=== PATIENT | female | born 1950 | race Caucasian/White ===

== ENCOUNTER 2020-05-05 16:58 | Inpatient (IN) | payer MEDICARE, OTHER, SELFPAY ==
[2020-05-05] VITALS (8 sets, daily range): BP systolic 114–196; BP diastolic 56–89; PULSE 76–88; RESP 16–18; TEMP 36.4–36.7; O2SAT 96–98; BMI 21.1
--- NOTE | 2020-05-05 17:16 | XR_ITS ---
PROCEDURE: XR HIP LT 2-3V W/PELVIS CLINICAL INDICATION: fall Posttraumatic pain COMPARISON: No exams were available for comparison FINDINGS: There is a comminuted intertrochanteric fracture of the left hip which is not significantly displaced. There are mild osteoarthritic changes involving both hips. There may also be a component involving the basicervical portion of the left femoral neck. CT may confirm if clinically desired. IMPRESSION: Comminuted nondisplaced left intertrochanteric hip fracture with basicervical component superiorly along the femoral neck Dictated by: Morro Caceres MD 05/05/2020 18:37 Morro Caceres MD in [place] 05/05/2020 18:37
[2020-05-05 17:33] LABS: Chloride 102 mmol/L (98-107)
[2020-05-05 17:34] LABS: Potassium 4.4 mmoL/L (3.5-5.1); Sodium 134 mmol/L (136-145)
--- NOTE | 2020-05-05 17:35 | HMH.EDGENADL ---
ED Disposition Clinical Impression: Femoral neck fracture Qualifiers: Encounter type: initial encounter Fracture type: closed Laterality: left Qualified Code(s): S72.002A - Fracture of unspecified part of neck of left femur, initial encounter for closed fracture Disposition: Admitted As Inpatient Condition on Discharge: Good - Critical Care Critical Care Time: No Attestation: On 05/05/20, the high probability of a clinically significant, sudden or life threatening deterioration of the following system(s) required my full and direct attention, intervention and personal management. The time I documented below is in addition to time spent performing reported procedures but includes the following listed in this critical care notation. Medical Decision Making - Medical Records Medical records reviewed: Yes: I reviewed the patient's medical records. - [facility] Inquiry Pt receiving controlled substance: No Vital Signs: 05/05/20 16:58 05/05/20 17:28 05/05/20 19:21 Temperature 98 F Temperature Source Oral Pulse Rate [Radial] 79 78 88 Respiratory Rate 16 Blood Pressure [Right Arm] 196/89 H 176/86 H 114/58 L Blood Pressure Mean [Right Arm] 124 116 76 Blood Pressure Position [Right Arm] Sitting Sitting 02 Sat by Pulse Oximetry 98 98 Oxygen Delivery Method Room Air Room Air - Lab Data Lab Results 05/05/20 17:20: WBC 7.2, RBC 3.99 L, Hgb 13.4, Hct 41.4, MCV 103.8 H, MCH 33.6 H, MCHC 32.4, RDW 13.8, Plt Count 156, MPV 8.3, Neut % (Auto) 64.5, Lymph % (Auto) 28.0, [place] % (Auto) 3.7, Eos % (Auto) 3.1, Baso % (Auto) 0.8, Neut # (Auto) 4.6, Lymph # (Auto) 2.0, [place] # (Auto) 0.3, Eos # (Auto) 0.2, Baso # (Auto) 0.1 05/05/20 17:20: Sodium 134 L, Potassium 4.4, Chloride 102, Carbon Dioxide 27, Anion Gap 9.4, BUN 29 H, Creatinine 1.40 H, Estimated Creat Clear 35, Estimated GFR 37 L, Est GFR ( Amer) 45 L, Glucose 124 H, Calcium 9.0, Total Bilirubin 0.5, AST 38 H, ALT 22, Alkaline Phosphatase 121, Total Protein 7.1, Albumin 4.3, Globulin 2.8, Albumin/Globulin Ratio 1.5 05/05/20 17:20: SARS-CoV-2 IgG Ab (Rapid) Negative, SARS-CoV-2 IgM Ab (Rapid) Negative Result diagrams: 05/05/20 17:20 05/05/20 17:20 Orders (Tests/Meds): ED MEDICATIONS Generic Name Dose Route Start Last Admin Trade Name Freq PRN Reason Stop Dose Admin Hydrocodone Bitart/Acetaminophen 1 tab 05/05/20 20:06 Hydrocodone/Apap 5/325 Mg Tablet PO 06/04/20 20:05 Q4HP PRN Mild to Moderate Pain Docusate Sodium 100 mg 05/06/20 09:00 Docusate Sodium 100 Mg Capsule PO 06/05/20 08:59 DAILY SEAN Lactated Ringer's 1,000 mls @ 50 mls/hr 05/05/20 20:06 Lactated Ringer's 1000 Ml Bag IV 06/04/20 20:05 .Q20H SEAN Pantoprazole Sodium 40 mg 05/06/20 09:00 Pantoprazole 40mg Tablet PO 06/05/20 08:59 DAILY SEAN Discontinued Medications Generic Name Dose Route Start Last Admin Trade Name Freq PRN Reason Stop Dose Admin Acetaminophen 1,000 mg 05/05/20 20:23 05/05/20 20:31 Acetaminophen 500mg Tab PO 05/05/20 20:24 1,000 mg ONCE ONE Administration ORDERS Category Date Time Status CT pelvis wo con Stat Cat Scan 05/05/20 18:40 Taken Medical Decision Narrative: 69-year-old female brought in by EMS for evaluation after a fall from standing. Hemodynamically stable and nontoxic in appearance upon arrival. GCS 15. No evidence of head trauma. Isolated injury to left hip. Differential diagnosis includes was not limited to left hip fracture, pelvic fracture, left hip dislocation, soft tissue contusion, femur fracture. Obtained x-rays which were concerning for left femoral neck fracture. Discussed patient's case with orthopedics who recommended obtaining CT of pelvis, which was obtained and showed evidence of impacted fracture of the left femoral neck. Provided patient with oral Tylenol for pain, as patient declined any IV pain medications narcotics. Discussed the options of admission for further
[2020-05-05 17:36] LABS: Alanine Aminotransferase 22 U/L (12-78); Albumin Level 4.3 g/dl (3.5-5.0); Alkaline Phosphatase 121 U/L (38-126); Aspartate Amino Transferase 38 U/L (14-36); Bilirubin,Total 0.5 mg/dl (0.2-1.3); Blood Urea Nitrogen 29 mg/dl (7-17); Creatinine Clearance Estimated 35 mL/min (50-200); Estimated Glomerular Filt Rate 37 ml/min (>60); GFR (African American) 45 ML/MIN (>60)
[2020-05-05 17:37] LABS: Albumin/Globulin Ratio 1.5 (1.1-1.8); Anion Gap 9.4 mEq/L (5-15); Carbon Dioxide 27 mmol/L (22.0-30.0); Globulin 2.8 g/dL (1.3-3.2); Glucose 124 mg/dl (74-100); Total Protein,Serum 7.1 g/dl (6.3-8.2)
--- NOTE | 2020-05-05 17:37 | XR_ITS ---
PROCEDURE: XR CHEST AP CLINICAL HISTORY: fall Posttraumatic pain COMPARISON: No exams were available for comparison FINDINGS: The cardiomediastinal silhouette and pulmonary vascularity are within normal limits. No lobar consolidation or collapse is evident. There is some nodularity along the lower lung field on the left in the retrocardiac region in 2 different areas at 10 mm and 13 mm. The remaining lungs are clear. No acute bony abnormalities. IMPRESSION: No acute finding. Two nodular densities overlying the left lower lobe. Nonemergent CT may provide further evaluation. Dictated by: Morro Caceres MD 05/05/2020 18:36 Morro Caceres MD in [place] 05/05/2020 18:36
[2020-05-05 17:54] LABS: Basophils # 0.1 K/mm3 (0-0.2); Basophils % 0.8 % (0.1-2.0); Eosinophils # 0.2 K/mm3 (0.0-0.4); Eosinophils % 3.1 % (0.1-12.0); Hematocrit 41.4 % (37.0-47.0); Hemoglobin 13.4 g/dL (12.2-16.2); Mean Corpuscular HGB Conc 32.4 g/dL (31.8-35.4); Mean Corpuscular Hemoglobin 33.6 pg (27.0-31.2); Mean Corpuscular Volume 103.8 fl (81-99); Mean Platelet Volume 8.3 fl (7.4-10.4); Monocytes # 0.3 K/mm3 (0.1-1.0); Monocytes % 3.7 % (1.7-9.3); Neutrophils # 4.6 K/mm3 (1.8-7.8); Neutrophils % 64.5 % (37.0-80.0); Platelet Count 156 K/mm3 (142-424); Red Blood Count 3.99 M/mm3 (4.20-5.40); Red Cell Distribution Width 13.8 % (11.5-17.5); White Blood Count 7.2 K/mm3 (4.8-10.8)
[2020-05-05 18:02] LABS: Coronavirus 19 IgG Antibody Negative (Negative); Coronavirus 19 IgM Antibody Negative (Negative)
--- NOTE | 2020-05-05 18:40 | CT_ITS ---
PROCEDURE: CT PELVIS WO CON CLINICAL INDICATION: left hip fracture Left hip injury with pain, possible fracture. Further evaluation required COMPARISON: CR XR HIP LT 2-3V W/PELVIS from 05/05/2020 TECHNIQUE: Axial images obtained with sagittal and coronal reformats. All CT scans at the facility use one or more dose reduction, viz: automated exposure control, ma/kV adjustment per patient size (including targeted exams where dose is matched to indication, i.e. head), or iterative reconstruction technique. FINDINGS: There is a complex comminuted fracture involving the left femoral neck. Anteriorly the fracture begins in the subcapital region and extends obliquely and posteriorly to the inter trochanteric region. There is impaction of the fracture fragments. There is mild varus angulation of the distal fracture fragment. The base of the lesser trochanter is fractured with minimal medial displacement. The femoral head is located. There is diffuse osteopenia with mild osteoarthritic changes of the hips. There is diffuse vascular calcification IMPRESSION: Comminuted and impacted fracture of the left hip extending from the subcapital region superiorly to the intertrochanteric region inferiorly as described above. Dictated by: Morro Caceres MD 05/06/2020 06:10 Morro Caceres MD in [place] 05/06/2020 06:10
--- NOTE | 2020-05-05 18:43 | PC.NURSE ---
Dr Shaw spoke with Dr Nguyễn
--- NOTE | 2020-05-05 19:35 | PC.NURSE ---
admitted to 279
--- NOTE | 2020-05-05 20:06 | PC.NURSE ---
doris dao at [facility] for possible transfer
--- NOTE | 2020-05-05 20:10 | PC.NURSE ---
pt refused norco, requesting tylenol
--- NOTE | 2020-05-05 20:41 | PC.NURSE ---
called [facility]. no beds available
--- NOTE | 2020-05-05 22:00 | PC.NURSE ---
PT ALERT AND ORIENTED X 4,LUNGS CLEAR TO ASCULTATE,RESP.EVEN AND UNLABORED.B/P 147/87,P-84,R-18,T-97.6,SAT.LEVEL 98% ON RA.LEFT LEG SWOLLEN FROM HIP TO KNEE.LITTLE EXTERNAL ROTATION OF FOOT,WEAK PEDAL PULSES NOTED BILATERALLY.LEFT FOOT AND LEG COOL TO TOUCH.PT HAS NOT TAKEN ANYTHING EXCEPT TYLENOL IN ER,REFUSED ANYTHING STRONGER IN ER AND HERE ON UNIT.VERY LIMITED MOBILITY OF LEFT LEG,UNDERWOOD CATH WAS ANCHORED DUE TO THIS.
--- NOTE | 2020-05-05 23:10 | HMH.HP ---
*Admission Date: 05/05/20 *Chief complaint: Left hip injury *History of present illness: This 69-year-old white female was walking her dog on a leash when the dog tried to karen a cat, pulling the patient down with injury to her left hip. She had pain and was not able to stand. She was brought to [facility] where x-ray revealed an impacted left femoral fracture. Dr. Nguyễn has been contacted and surgery is planned for tomorrow. The patient is generally quite healthy. She takes lisinopril for hypertension. She has a strong family history of diabetes. Allergies to codeine and oxycodone, penicillin and tetracycline are noted. [facility] History I have reviewed the patient's past medical history: Yes Medical History: Reports:: Hypertension (Lisinopril she says 30 mg.) *Have you ever received a pneumonia vaccine?: Yes *Have you received a flu vaccine this season?: Yes Other Medical History: Denies: Thyroid Disease Other Surgeries: Yes: No Previous Surgery - *Social History Smoking Status: Never smoker Alcohol Intake: never Substance Use Type: denies use *Occupational Status:: other *Travel in the last 8 weeks: None Family Hx:: Diabetes (Multiple family members), Hypertension Review of Systems - Constitutional Denies anorexia, Denies body ache(s), Denies chills - Eyes Denies change in vision - ENT Denies dizziness, Denies difficulty swallowing, Denies nasal congestion - *Cardiovascular Denies chest pain, Denies fast heart rate - *Gastrointestinal Denies abdominal pain, Denies constipation - *Genitourinary Denies painful urination - *Musculoskeletal Denies joint pain, Denies back pain - *Neurologic Denies unsteadiness, Denies dizziness, Denies headache(s), Denies lack of coordination - Hematologic/Lymphatic Denies easy bleeding, Denies easy bruising Meds Home Medications Medication Instructions Recorded Confirmed Type lisinopriL [Lisinopril 30mg Tablet] 30 mg PO DAILY 05/05/20 05/05/20 History Allergies Allergy/AdvReac Type Severity Reaction Status Date / Time Penicillins [PENICILLINS] Allergy Unknown Verified 05/05/20 20:25 codeine Allergy Verified 05/05/20 22:01 oxycodone Allergy Verified 05/05/20 22:01 Tetracyclines Allergy Verified 05/05/20 20:25 Exam Vital signs and Labs for Last 24 Hours: Temp Pulse Resp BP Pulse Ox 98.1 F 78 17 121/56 L 98 05/05/20 21:24 05/05/20 21:24 05/05/20 21:24 05/05/20 21:24 05/05/20 21:00 Laboratory Results - last 24 hr 05/05/20 17:20: WBC 7.2, RBC 3.99 L, Hgb 13.4, Hct 41.4, MCV 103.8 H, MCH 33.6 H, MCHC 32.4, RDW 13.8, Plt Count 156, MPV 8.3, Neut % (Auto) 64.5, Lymph % (Auto) 28.0, [place] % (Auto) 3.7, Eos % (Auto) 3.1, Baso % (Auto) 0.8, Neut # (Auto) 4.6, Lymph # (Auto) 2.0, [place] # (Auto) 0.3, Eos # (Auto) 0.2, Baso # (Auto) 0.1 05/05/20 17:20: Sodium 134 L, Potassium 4.4, Chloride 102, Carbon Dioxide 27, Anion Gap 9.4, BUN 29 H, Creatinine 1.40 H, Estimated Creat Clear 35, Estimated GFR 37 L, Est GFR ( Amer) 45 L, Glucose 124 H, Calcium 9.0, Total Bilirubin 0.5, AST 38 H, ALT 22, Alkaline Phosphatase 121, Total Protein 7.1, Albumin 4.3, Globulin 2.8, Albumin/Globulin Ratio 1.5 05/05/20 17:20: SARS-CoV-2 IgG Ab (Rapid) Negative, SARS-CoV-2 IgM Ab (Rapid) Negative I & O for Last 24 hours: Intake & Output 05/03/20 05/04/20 05/05/20 05/06/20 11:59 11:59 11:59 11:59 Weight 131 lb - Constitutional mild distress (Due to left hip pain) - *Routine HEENT Exam Head: Present: normocephalic Eye: Present: PERRL ENT: Present: mucous membranes moist. Absent: dentition normal (Edentulous with dentures) - *Routine Neck Exam Present: supple. Absent: JVD, thyromegaly - Routine Chest/Breast/Axilla Exam Chest wall: Absent: tenderness - *Routine Respiratory Exam Present: CTA bilaterally - *Routine Cardiovascular Exam Present: RRR, S4 - *Routine Abdominal Exam Present: soft. Absent: tenderness, mass - *
[2020-05-06] VITALS (16 sets, daily range): BP systolic 95–148; BP diastolic 53–76; PULSE 71–89; RESP 16–20; TEMP 36.2–43; O2SAT 94–99
--- NOTE | 2020-05-06 05:50 | PC.NURSE ---
pt has rested off and on throughout the night,refused anything but tylenol for pain,lungs clear throughtout.resp.even and unlabored.zavaleta cath patent and draining yellow urine.pedal pulses present more so today,swelling noted from hip to knee on right side.
[2020-05-06 06:50] LABS: Monocytes # 0.3 K/mm3 (0.1-1.0)
[2020-05-06 06:56] LABS: Chloride 105 mmol/L (98-107)
[2020-05-06 06:57] LABS: Potassium 4.3 mmoL/L (3.5-5.1); Sodium 134 mmol/L (136-145)
[2020-05-06 06:59] LABS: Blood Urea Nitrogen 30 mg/dl (7-17); Creatinine Clearance Estimated 41 mL/min (50-200); Estimated Glomerular Filt Rate 44 ml/min (>60); GFR (African American) 54 ML/MIN (>60)
[2020-05-06 07:00] LABS: Anion Gap 8.3 mEq/L (5-15); Basophils % 0.5 % (0.1-2.0); Calcium 8.5 mg/dl (8.4-10.2); Carbon Dioxide 25 mmol/L (22.0-30.0); Eosinophils % 0.3 % (0.1-12.0); Glucose 122 mg/dl (74-100); Hematocrit 35.7 % (37.0-47.0); Lymphocytes # 0.9 K/mm3 (0.7-4.5); Lymphocytes % 13.7 % (10-50); Mean Corpuscular HGB Conc 33.6 g/dL (31.8-35.4); Mean Corpuscular Hemoglobin 33.6 pg (27.0-31.2); Mean Corpuscular Volume 100.3 fl (81-99); Mean Platelet Volume 8.8 fl (7.4-10.4); Monocytes % 4.6 % (1.7-9.3); Neutrophils # 5.3 K/mm3 (1.8-7.8); Neutrophils % 80.9 % (37.0-80.0); Platelet Count 115 K/mm3 (142-424); Red Blood Count 3.56 M/mm3 (4.20-5.40); Red Cell Distribution Width 13.7 % (11.5-17.5); White Blood Count 6.5 K/mm3 (4.8-10.8)
[2020-05-06 07:19] LABS: Prothrombin Time 10.5 seconds (9.4-11.8)
[2020-05-06 07:20] LABS: INR 0.94 (0.9-1.1)
--- NOTE | 2020-05-06 07:24 | HMH.PHAVTE ---
[facility] Pharmacy VTE Monitoring - Patient Demographics Admission date: 05/05/20 Report Date: 05/06/20 Time: 07:24 Allergies/Adverse Reactions: Patient Allergies Penicillins [PENICILLINS] Allergy (Unknown, Verified 05/05/20 20:25) codeine Allergy (Verified 05/05/20 22:01) oxycodone Allergy (Verified 05/05/20 22:01) Sulfa (Sulfonamide Antibiotics) Allergy (Verified 05/06/20 02:43) Tetracyclines Allergy (Verified 05/05/20 20:25) Height: 1.68 m Weight: 59.421 kg Patient Problems: Current Active Problems Femoral neck fracture (Acute) Hypertension (Acute) - VTE Risk Labs: VTE Related Lab Results Hgb 13.4 g/dL (12.2-16.2) 05/05/20 17:20 Hct 35.7 % (37.0-47.0) L 05/06/20 06:22 Plt Count 115 K/mm3 (142-424) L D 05/06/20 06:22 PT 10.5 seconds (9.4-11.8) 05/06/20 06:22 INR 0.94 (0.9-1.1) 05/06/20 06:22 BUN 30 mg/dl (7-17) H 05/06/20 06:22 Creatinine 1.20 mg/dl (0.52-1.04) H 05/06/20 06:22 Estimated Creat Clear 41 mL/min (50-200) 05/06/20 06:22 Was VTE Risk Assessment Performed: Yes VTE Score: 2 VTE Risk Level: Very Low Risk Clinical Trial Participant: No - Prophylaxis VTE Prophylaxis Ordered?: Yes Types of VTE Prophylaxis: TEDS Knee High Location of Applied Device: Bilateral Lower Extremeties
--- NOTE | 2020-05-06 07:27 | HMH.PHAINT ---
Medication reconciliation completed using pharmacy claims data.
--- NOTE | 2020-05-06 09:05 | HMH.ACPN2 ---
Internal Medicine - PN: Subj *Date: 05/06/20 *Time: 09:05 Interval history: Patient is having a lot of pain in the left hip. She is only taking tylenol for pain and refuses any other pain medication. She denies any other pain. Exam Vital signs and Labs for Last 24 Hours: Temp Pulse Resp BP Pulse Ox 97.8 F 75 18 127/65 98 05/06/20 05:00 05/06/20 05:00 05/06/20 05:00 05/06/20 05:00 05/06/20 05:00 Laboratory Results - last 24 hr 05/05/20 17:20: WBC 7.2, RBC 3.99 L, Hgb 13.4, Hct 41.4, MCV 103.8 H, MCH 33.6 H, MCHC 32.4, RDW 13.8, Plt Count 156, MPV 8.3, Neut % (Auto) 64.5, Lymph % (Auto) 28.0, [place] % (Auto) 3.7, Eos % (Auto) 3.1, Baso % (Auto) 0.8, Neut # (Auto) 4.6, Lymph # (Auto) 2.0, [place] # (Auto) 0.3, Eos # (Auto) 0.2, Baso # (Auto) 0.1 05/05/20 17:20: Sodium 134 L, Potassium 4.4, Chloride 102, Carbon Dioxide 27, Anion Gap 9.4, BUN 29 H, Creatinine 1.40 H, Estimated Creat Clear 35, Estimated GFR 37 L, Est GFR ( Amer) 45 L, Glucose 124 H, Calcium 9.0, Total Bilirubin 0.5, AST 38 H, ALT 22, Alkaline Phosphatase 121, Total Protein 7.1, Albumin 4.3, Globulin 2.8, Albumin/Globulin Ratio 1.5 05/05/20 17:20: SARS-CoV-2 IgG Ab (Rapid) Negative, SARS-CoV-2 IgM Ab (Rapid) Negative 05/06/20 06:22: WBC 6.5, RBC 3.56 L, Hgb 12.0 L D, Hct 35.7 L, MCV 100.3 H, MCH 33.6 H, MCHC 33.6, RDW 13.7, Plt Count 115 L D, MPV 8.8, Neut % (Auto) 80.9 H, Lymph % (Auto) 13.7, [place] % (Auto) 4.6, Eos % (Auto) 0.3, Baso % (Auto) 0.5, Neut # (Auto) 5.3, Lymph # (Auto) 0.9, [place] # (Auto) 0.3, Eos # (Auto) 0.0, Baso # (Auto) 0.0 05/06/20 06:22: PT 10.5, INR 0.94 05/06/20 06:22: Sodium 134 L, Potassium 4.3, Chloride 105, Carbon Dioxide 25, Anion Gap 8.3, BUN 30 H, Creatinine 1.20 H, Estimated Creat Clear 41, Estimated GFR 44 L, Est GFR ( Amer) 54 L, Glucose 122 H, Calcium 8.5 I & O for Last 24 hours: Intake & Output 05/03/20 05/04/20 05/05/20 05/06/20 11:59 11:59 11:59 11:59 Intake Total 398 / 398 Output Total 600 / 600 Balance - / -202 Weight 131 lb - Constitutional no acute distress - *Routine Respiratory Exam Present: CTA bilaterally - *Routine Cardiovascular Exam Present: RRR - *Routine Abdominal Exam Present: soft, normoactive bowel sounds. Absent: tenderness - *Routine Extremities Exam Absent: cyanosis, clubbing, edema Comments: tender along the lateral aspect of the left hip, unable to move left leg - *Routine Skin Exam Present: warm. Absent: rash - *Routine Neurological Exam Present: alert, oriented X3 Assessment and Plan (1) Hypertension Status: Acute Category: Medical Code(s): I10 - Essential (primary) hypertension (2) Femoral neck fracture Status: Acute Qualifiers: Encounter type: initial encounter Fracture type: closed Laterality: left Qualified Code(s): S72.002A - Fracture of unspecified part of neck of left femur, initial encounter for closed fracture Category: Medical Code(s): S72.009A - Fracture of unspecified part of neck of unspecified femur, initial encounter for closed fracture - Assessment and plan all Dx Assessment and Plan for all problems:: Ortho to see patient today for surgery.
--- NOTE | 2020-05-06 12:26 | HMH.ORTHOCON ---
*Admission Date: 05/05/20 *Reason for consult:: Complex intertrochanteric fracture, left femur *History of present illness: Patient is a 69-year-old female admitted to inpatient medical services yesterday evening for management of left hip fracture. Patient's daughter is by the bedside at the time of consultation. She presented to the emergency department yesterday following a mechanical fall. Patient states she was walking her dog when he tried to karen a cat, and pulled her down onto her left hip. Patient states she was unable to get up or walk after the fall due to pain in her left hip. Patient denies any dizziness, headache, chest or neck pain. She denies loss of consciousness, chest pain and shortness of breath. She lives by herself and is mobile and independent. She does not use any walking aids. She reports no problems with her hips prior to the fall. She had surgery for left ankle fracture about 7 or 8 years ago in [place]. She says her pain is well controlled at rest but trying to move the left leg causes severe hip/thigh pain. No history of any distal tingling or numbness. She denies any other injuries. Her past medical history is significant for hypertension. The patient is generally quite healthy and active. She takes lisinopril for hypertension. She has a strong family history of diabetes. Allergies to codeine, oxycodone, penicillin, cephalosporins and tetracycline are noted. [facility] History I have reviewed the patient's past medical history: Yes Medical History: Reports:: Hypertension (Lisinopril she says 30 mg.) *Have you ever received a pneumonia vaccine?: Yes *Have you received a flu vaccine this season?: Yes Other Medical History: Denies: Thyroid Disease Other Surgeries: Yes: No Previous Surgery - *Social History Smoking Status: Never smoker Alcohol Intake: never Substance Use Type: denies use *Occupational Status:: other *Travel in the last 8 weeks: None Family Hx:: Diabetes (Multiple family members), Hypertension Review of Systems - Review of Systems Review of systems:: pertinent systems reviewed and negative unless documented below - Constitutional Denies body ache(s), Denies chills, Denies fever(s) - Eyes Denies change in vision - ENT Denies abnormal hearing - *Cardiovascular Denies chest pain, Denies shortness of breath - *Respiratory Denies chest congestion, Denies cough, Denies shortness of breath - *Gastrointestinal Denies abdominal pain, Denies change in bowel habits - *Genitourinary Denies painful urination - *Musculoskeletal Denies joint pain, Denies limited joint movement - Integumentary/Breasts Denies changing lesions - *Neurologic Denies unsteadiness, Denies dizziness, Denies headache(s), Denies lack of coordination - Endocrine Denies cold intolerance, Denies heat intolerance - Hematologic/Lymphatic Denies easy bleeding, Denies easy bruising Meds Home Medications Medication Instructions Recorded Confirmed Type lisinopriL [Lisinopril 30mg Tablet] 30 mg PO DAILY 05/05/20 05/05/20 History Allergies Allergy/AdvReac Type Severity Reaction Status Date / Time Penicillins [PENICILLINS] Allergy Unknown Verified 05/05/20 20:25 cephalexin [From Keflex] Allergy Verified 05/06/20 12:18 codeine Allergy Verified 05/05/20 22:01 oxycodone Allergy Verified 05/05/20 22:01 Sulfa (Sulfonamide Allergy Verified 05/06/20 02:43 Antibiotics) Tetracyclines Allergy Verified 05/05/20 20:25 Exam Vital signs and Labs for Last 24 Hours: Temp Pulse Resp BP Pulse Ox 97.6 F 79 16 128/63 94 L 05/06/20 09:00 05/06/20 09:00 05/06/20 09:00 05/06/20 09:00 05/06/20 09:00 Laboratory Results - last 24 hr 05/05/20 17:20: WBC 7.2, RBC 3.99 L, Hgb 13.4, Hct 41.4, MCV 103.8 H, MCH 33.6 H, MCHC 32.4, RDW 13.8, Plt Count 156, MPV 8.3, Neut % (Auto) 64.5, Lymph % (Auto) 28.0, [place] % (Auto) 3.7, Eos % (Auto) 3.1, Baso % (Auto) 0.8, Neut # (Auto) 4.6, Lymph # (Auto) 2
--- NOTE | 2020-05-06 14:37 | SW/DCPLANNER ---
Addendum entered by Kassandra Whitten 05/10/20 12:54: This patient has been set up with [facility] for PT/OT. These services will take place at her daughters her in [place]. Original Note: I have spoke with this patient regarding discharge plans once medically stable for discharge. Patient stated that she resides at home alone and does well at home by herself. Patient stated that her daughter lives in [place] and is currently staying in town for her surgery. I did discuss discharge plans with this patient: return home with family/friend support and home health vs placement. I informed patient that after surgery she will receive services from PT and they will recommend appropriate discharge plan. Patient stated that her and her daughter have been discussing the idea of this patient going back to [place] with daughter. I will follow up with patient tomorrow morning. I have also gave this patient a list of facilities here in [place].
--- NOTE | 2020-05-06 15:20 | PC.NURSE ---
Consent for surgery signed by pt and witnessed by this nurse.
--- NOTE | 2020-05-06 15:30 | PC.NURSE ---
Reassessment completed No acute changes from previous assessment. Lungs remain CTA, Heart at RR. BS present x4. Pt. rates pain at 3/10 Nurse offered additional pain medication, Pt. refused. Pt. denies further needs, will continue to monitor.
--- NOTE | 2020-05-06 16:21 | PC.NURSE ---
Pt. to Pre-op via pt. bed, Report, antibiotic and chart given to Surgical nurses at this time
--- NOTE | 2020-05-06 16:30 | PC.NURSE ---
Per Pt. request Nurse notified Clarita Webbjeovany (daughter) of Pt. going down for surgery.
--- NOTE | 2020-05-06 17:54 | XR_ITS ---
PROCEDURE: XR HIP LT 2-3V W/PELVIS CLINICAL INDICATION: ORIF GAMMA NAIL LEFT HIP USING C-ARM GUIDANCE. COMPARISON: No exams were available for comparison FINDINGS: Fluoroscopy time: 3 minutes and 41 seconds. Multiple images are submitted during gamma nail and intramedullary ju insertion. A screw also placed superior to the gamma nail. Good alignment noted. IMPRESSION: Status post ORIF with C-arm guidance as described above. Dictated by: Morro Caceres MD 05/07/2020 07:19 Morro Caceres MD in [place] 05/07/2020 07:19
--- NOTE | 2020-05-06 19:18 | PC.NURSE ---
Report given to Jose Worley RN.
--- NOTE | 2020-05-06 19:33 | HMH.ANESCL ---
[facility] Anesthesia Checklist - Patient Identification Patient Identification: Arm Band - Structural Data Admitted From: Inpatient Planned Operative Procedure/s: Left Hip Cephalomedullary Nailing Consent for Planned Operative Procedure(s) Verified: Yes Verified Documents: Surgical Consent, History and Physical - NPO Status Verified Time NPO: 00:00 - Additional verifications Anesthesia Reactions: No - Airway Assessment C-Spine Mobility Assessed: Yes TMJ Mobility Assessed: Yes - Anesthesia Plan Anesthesia Risk discussed: Yes Anesthesia Plan: Verified ASA Class: II Anesthesia Type: General [facility] History I have reviewed the patient's past medical history: Yes Medical History: Reports:: Hypertension (Lisinopril she says 30 mg.) *Have you ever received a pneumonia vaccine?: Yes *Have you received a flu vaccine this season?: Yes Other Medical History: Denies: Thyroid Disease Anesthesia experience/problems:: nac Other Surgeries: Yes: No Previous Surgery - *Social History Smoking Status: Never smoker Alcohol Intake: never Substance Use Type: denies use *Occupational Status:: other *Travel in the last 8 weeks: None Family Hx:: Diabetes (Multiple family members), Hypertension
--- NOTE | 2020-05-06 21:08 | HMH.ANESI ---
[facility] Anesthesia Record Part I Intake, IV Amount: 1,700 Estimated blood loss (mL): 200 Urine output (mL): 150 Blood Pressure: 95/69 SaO2: 94 Pulse Rate: 81 Respiratory Rate: 16 Temperature: 97.2 F Patient is:: Drowsy, Stable Stable to PACU at:: 21:00
--- NOTE | 2020-05-06 21:41 | HMH.OPNOTE ---
Date of procedure: 05/06/20 Pre-op Diagnosis:: Closed, complex, comminuted and displaced intertrochanteric fracture, left femur Post-op Diagnosis:: Same Procedure performed:: 1. Close reduction under anesthesia, left proximal femur fracture 2. Cephalomedullary nailing, left femur Surgeon:: Richard Nguyễn MD Arborist Representative(s):: Karen Hernandez [employer] SUPERVISOR:: Ean Pelayo Anesthesia: GETA Estimated blood loss (mL): 200 Clinical Note:: Patient is a 69-year-old female who had a mechanical fall sustaining an injury to her left hip on 05/05/2020. Following evaluation in the emergency room where imaging showed a complex displaced and comminuted proximal femur fracture on the right side; patient was admitted for further management. After evaluating the patient, I have discussed the diagnosis and management options in detail including nonsurgical and surgical, with the patient and her daughter. Prior to the injury patient was active and mobile independently. She lives by herself. After a detailed discussion with the patient and her daughter a decision was made to fix the fracture internally with a cephalo-medullary nail. I have discussed the procedure, risks and benefits, postoperative recovery and rehabilitation and the expected outcomes. The complications discussed include but are not limited to DVT, PE, infection, bleeding, injury to nerves and blood vessels, screw cut-out/implant failure, loss of fixation, nonunion, malunion/malrotation, osteonecrosis of the femoral head, femoral shaft fracture, painful hardware, heterotopic ossification, stiffness, weakness, incomplete relief of pain, incomplete return of function or motion and the likely need for further surgery in future, and anesthetic/medical complications including heart attack, stroke, transfusion reaction or . The patient wished to proceed with the surgical remediation. Consent form was reviewed and signed by me. The limb was appropriately marked and initialed by me. Following appropriate preoperative workup and medical clearance, patient is brought to the operating room for surgery. The surgery is indicated to reduce and stabilize the fracture, relieve pain and improve function. Patient understood the risks, agreed to proceed with surgery, signed the consent form and no guarantees or assurances were given or implied. Operative findings:: Complex, comminuted, displaced and unstable fracture of the RIGHT proximal femur as noted on the preoperative imaging. The fracture is well reduced with closed manipulation prior to fixation. Bone quality is osteopenic. Operative note:: Following appropriate preoperative workup and medical clearance, patient is brought to the operating room and a general anesthesia was administered by the nutritionist. Patient was then positioned supine on the fracture table and all the bony prominences were appropriately padded. The left foot was secured in the footplate and the footplate was attached to the fracture table. The right leg was placed out of the way in a leg olivares. Under fluoroscopic guidance the fracture was reduced by traction and satisfactory reduction was obtained. The reduction was confirmed on both AP and lateral views. The left hip and thigh were then prepped and draped in the usual sterile fashion. Administration of prophylactic antibiotics was confirmed with the nutritionist (900 mg of IV clindamycin was administered). A preprocedure timeout was performed as per the hospital protocol. After marking the level of the greater trochanter on the skin under fluoroscopy, a skin incision was made proximal to the greater trochanter in line with the femoral shaft. The dissection was then carried through the subcutaneous tissue. The tensor fascia muscle was split in line with the fibers. This provided access to the tip of the greater trochanter. Under fluoroscopic guidance a guidewire was placed at the tip of the greater trochanter, the position was confirmed on both fluoroscopic views
--- NOTE | 2020-05-06 21:45 | PC.NURSE ---
2126-detailed report called to CHRIS Luis 2131-pt transported to OB room 279 as overflow from med/surg per CHRIS Malik and RENU Francis and left in care of CHRIS Luis with bed locked in lowest position, vss, family at bedside, pt stable
--- NOTE | 2020-05-06 22:30 | PC.NURSE ---
ICE WATER,APPLE JUICE PROVIDED,PT DENIES ANY NEED FOR PAIN MEDICINE AT THIS TIME.
--- NOTE | 2020-05-06 22:44 | PC.NURSE ---
CUP OF BLACK COFFEE PROVIDED TO PT AT THIS TIME
--- NOTE | 2020-05-06 22:50 | PC.NURSE ---
RESPIRTORY HERE AND INSTRUCTED PT IN INCENTIVE SPIROMETER,PT WAS ABLE TO ACHIEVE 750ML
--- NOTE | 2020-05-06 23:00 | PC.NURSE ---
COFFEE PROVIDED.PT REFUSING ANYTHING FOR PAIN,REPORTS SHE DOES NOT HAVE ANY,JUST A TWITCH EVERY NOW AND THEN
[2020-05-07] VITALS (13 sets, daily range): BP systolic 110–149; BP diastolic 45–76; PULSE 65–95; RESP 16–18; TEMP 36.3–37.5; O2SAT 94–100
--- NOTE | 2020-05-07 03:30 | PC.NURSE ---
PT ALERT AND ORIENTED X 4,LUNGS CLEAR,RESP.EVEN AND UNLABORED.SAT LEVEL WITH 2 LITER OXYGEN IS 100%,TURNING OXYGEN OFF AND RECHECKING HER SAT LEVEL WITHOUT OXYGEN IN ABOUT 30 MINS.PT AFIBRILE,UNDERWOOD CATH EMPTIED 200ML OD DARK URINE.GAVE PT A PARTIAL BED BATH AND WASHED HER HIBICLENS OFF,CATH CARE DONE TOO.PT HAS DENIED ANY PAIN THROUGHTOUT THE NIGHT,SAID AT TIMES JUST FEELS A TWINCH,DRESSING DRY ON THE LEFT LEG,WEAK PEDAL PULSES NOTED,ICPS ON RIGHT LEG,ICE PACK ON THE LEFT LEG
--- NOTE | 2020-05-07 04:00 | PC.NURSE ---
WATER PITCHER FILLED WITH ICE AND PT PROVIDED WITH SOME COFFEE,NO NEEDS OR CONCERN VOICED
[2020-05-07 07:30] LABS: Basophils % 0.2 % (0.1-2.0); Eosinophils % 0.1 % (0.1-12.0); Hematocrit 29.6 % (37.0-47.0); Hemoglobin 9.5 g/dL (12.2-16.2); Lymphocytes # 0.7 K/mm3 (0.7-4.5); Lymphocytes % 8.5 % (10-50); Mean Corpuscular HGB Conc 32.1 g/dL (31.8-35.4); Mean Corpuscular Hemoglobin 33.2 pg (27.0-31.2); Mean Corpuscular Volume 103.3 fl (81-99); Mean Platelet Volume 10.8 fl (7.4-10.4); Monocytes # 0.3 K/mm3 (0.1-1.0); Monocytes % 3.2 % (1.7-9.3); Neutrophils # 7.1 K/mm3 (1.8-7.8); Platelet Count 100 K/mm3 (142-424); Red Blood Count 2.87 M/mm3 (4.20-5.40); Red Cell Distribution Width 13.2 % (11.5-17.5)
[2020-05-07 07:40] LABS: Chloride 103 mmol/L (98-107)
[2020-05-07 07:41] LABS: Potassium 4.8 mmoL/L (3.5-5.1); Sodium 132 mmol/L (136-145)
[2020-05-07 07:43] LABS: Alanine Aminotransferase 23 U/L (12-78); Alkaline Phosphatase 60 U/L (38-126); Anion Gap 8.8 mEq/L (5-15); Aspartate Amino Transferase 34 U/L (14-36); Bilirubin,Total 0.8 mg/dl (0.2-1.3); Blood Urea Nitrogen 31 mg/dl (7-17); Carbon Dioxide 25 mmol/L (22.0-30.0); Creatinine Clearance Estimated 41 mL/min (50-200); Estimated Glomerular Filt Rate 44 ml/min (>60); GFR (African American) 54 ML/MIN (>60)
[2020-05-07 07:44] LABS: Albumin Level 2.9 g/dl (3.5-5.0); Albumin/Globulin Ratio 1.2 (1.1-1.8); Calcium 7.7 mg/dl (8.4-10.2); Globulin 2.5 g/dL (1.3-3.2); Glucose 185 mg/dl (74-100); Total Protein,Serum 5.4 g/dl (6.3-8.2)
[2020-05-07 07:47] LABS: MANUAL DIFFERENTIAL MANUAL DIFFERENTIAL (MANUAL DIFF)
[2020-05-07 09:46] LABS: Lymphocytes % 6 % (10-50); Macrocytosis 1+; Monocytes % 4 % (2-9); Neutrophils % 90 % (42-76); Platelet Estimate Slight Decrease; Total Cells Counted 100
--- NOTE | 2020-05-07 09:59 | HMH.ANESII ---
[facility] Anesthesia Record Part II Discharge Time: 21:30 Destination: Obstetric PACU nurse assessment reviewed?: Yes Patient Condition:: Good Anesthesia Complications:: None Swallowing reflex intact?: Yes Cyanosis?: No Blood Pressure: 148/76 Pulse Rate: 78 Temperature: 97.7 F Mental Status: Alert & Oriented Pain level:: 0 Nausea and/or vomitting:: None Intake, IV Amount: 0
--- NOTE | 2020-05-07 11:06 | HMH.ACPN2 ---
Internal Medicine - PN: Subj *Date: 05/07/20 *Time: 11:06 Interval history: The patient is feeling well. She is sitting up in bed watching TV and seems to have no discomfort. She asks about her blood pressure medication which she has not taken since she has been hospitalized. She takes 30 mg of lisinopril daily. She is complementary of the care that she has been receiving. Exam Vital signs and Labs for Last 24 Hours: Temp Pulse Resp BP Pulse Ox 97.7 F 78 16 148/76 H 94 L 05/07/20 10:00 05/07/20 10:00 05/07/20 08:00 05/07/20 10:00 05/07/20 08:00 Laboratory Results - last 24 hr 05/06/20 12:39: Blood Type O Positive, Antibody Screen Negative 05/07/20 06:58: WBC 8.0, RBC 2.87 L, Hgb 9.5 L, Hct 29.6 L, MCV 103.3 H, MCH 33.2 H, MCHC 32.1, RDW 13.2, Plt Count 100 L, MPV 10.8 H, Neut % (Auto) 88.0 H, Lymph % (Auto) 8.5 L, [place] % (Auto) 3.2, Eos % (Auto) 0.1, Baso % (Auto) 0.2, Neut # (Auto) 7.1, Lymph # (Auto) 0.7, [place] # (Auto) 0.3, Eos # (Auto) 0.0, Baso # (Auto) 0.0, Total Counted 100, Neutrophils % (Manual) 90 H, Lymphocytes % (Manual) 6 L, Monocytes % (Manual) 4, Platelet Estimate Slight decrease, Macrocytosis 1+ 05/07/20 06:58: Sodium 132 L, Potassium 4.8, Chloride 103, Carbon Dioxide 25, Anion Gap 8.8, BUN 31 H, Creatinine 1.20 H, Estimated Creat Clear 41, Estimated GFR 44 L, Est GFR ( Amer) 54 L, Glucose 185 H, Calcium 7.7 L, Total Bilirubin 0.8, AST 34, ALT 23, Alkaline Phosphatase 60, Total Protein 5.4 L, Albumin 2.9 L, Globulin 2.5, Albumin/Globulin Ratio 1.2 Note H&H I & O for Last 24 hours: Intake & Output 05/04/20 05/05/20 05/06/20 05/07/20 11:59 11:59 11:59 11:59 Intake Total 398 / 398 1700 / 1700 Output Total 600 / 600 1150 / 1150 Balance -202 / -202 550 / 550 Weight 131 lb - Constitutional no acute distress - *Routine HEENT Exam Eye: Present: PERRL ENT: Present: mucous membranes moist - *Routine Respiratory Exam Present: CTA bilaterally - *Routine Cardiovascular Exam Present: RRR - *Routine Abdominal Exam Absent: tenderness - *Routine Extremities Exam Absent: edema (Dressing is in place on the left hip area. Flowtron is in place on the right leg) Assessment and Plan (1) Femoral neck fracture Status: Acute Qualifiers: Encounter type: initial encounter Fracture type: closed Laterality: left Qualified Code(s): S72.002A - Fracture of unspecified part of neck of left femur, initial encounter for closed fracture Category: Medical Code(s): S72.009A - Fracture of unspecified part of neck of unspecified femur, initial encounter for closed fracture (2) Hypertension Status: Acute Category: Medical Code(s): I10 - Essential (primary) hypertension - Assessment and plan all Dx Assessment and Plan for all problems:: Lisinopril 30 mg daily is now ordered.
--- NOTE | 2020-05-07 11:16 | HMH.OTEV ---
OT Inpatient Evaluation Rehab OT IP Evaluation Start: 05/06/20 21:35 Freq: ONCE Status: Complete Protocol: Document 05/07/20 11:10 NATALIIA (Rec: 05/07/20 11:16 [email or web address] [id number]) Rehab OT IP Assessment Subjective History 69 year old female fell while walking the dog on 05/05/20 resulted in left hip pain and unable to ambulate. Patient brought to [facility] ED per ambulance with x-ray revealed impacted L femoral fx. PMH: HTN and L femoral neck fracture. Patient underwent close reduction under anesthesia and cephalomedually nailing on 05/06/20. Patient lives alone and independent with ADLs and fx'l mobility. Subjective I haven't taken any pain medication. I just rather only take them when needed. Educated Patient to take pain medication prior to therapy to improve participation. Teach back successful. Objective Patient Orientation Person,Place,Time,Name,Age, Birthday,Day of Month,Day of Week,Month,Year,Situation Upper Extremity Gross ROM WNL Bed Mobility bed mobility-scooting,bed mobility - supine/sit,bed mobility - rolling Assist Level Moderate x 1 (50% assist) Feeding Ability Independent Rehab OT IP prob,goals,plan Problems Date of Evaluation: 05/07/20 OT IP Problems Bed Mobility,Transfers,Balance ,Self care,Safety Rehab Potential Rehab Potential Good Equipment Needs Assistive Devices Standard Walker Plan OT intervention Plan Bed Mobility,Transfers,Balance ,Self care,Safety,Therapeutic Exercise OT Plan Frequency Daily Duration LOS Discharge Goals Bed Mobility Ability Standby Assistance Discharge Plan OT Discharge Plan TBD at this time. Patient prefers to return home with possible HH. Patient has not consulted with CM during evaluation. Patient would benefit
--- NOTE | 2020-05-07 11:50 | HMH.PTEV ---
Physical Therapy Evaluation Rehab PT IP Evaluation Start: 05/06/20 21:35 Freq: ONCE Status: Active Protocol: Document 05/07/20 11:47 PHORNE (Rec: 05/07/20 11:49 PHORNE [id number]) Subjective/History History History [address] [facility] after fall while walking her dog with L hip fx. Now S/P L femur IMN. She reports being independent with all activity TUBE WINDER. Subjective Subjective Pt reports feeling much better than yesterday prior to surgery. Rehab PT IP Eval Objective Appearance Patient Behavior Appropriate Patient Orientation Person,Place,Time Difficulty following instructions none Speech Pattern Clear Ambulation Patient Able to Ambulate Yes Ambulation Observation IP General Gait Pattern Observation Antalgic Gait,Decrease Stride Lngth (R),Decrease Stride Lngth (L) Ambulation Distance (feet) 10 Ambulation Assistive Device Rolling Walker Ambulation Ability Contact Guard/Hand Hold Balance Ability to Arise Able, uses arms to help Sitting Balance Steady, safe Standing Balance Steady, wide stance Dynamic Sitting Balance Ability Good Dynamic Standing Balance Ability Good Transfers Bed Transfer Ability Minimal x 1 (25% assist) Chair Transfer Ability Contact Guard/Hand Hold Sit to Stand Bed Transfer Ability Contact Guard/Hand Hold Sit to Stand Chair Transfer Ability Contact Guard/Hand Hold ROM All Extremities PT ROM Status WFL MMT All Extremities PT MMT WFL Abnormal MMT Grade L LE grossly 2+/5 Rehab PT IP prob,goals,plan Problems Date of Evaluation: 05/07/20 PT IP Problems Bed Mobility,Transfers Rehab Potential Rehab Potential Good Equipment Needs Assistive Devices Rolling / Wheeled Walker Plan PT Intervention Plan Bed Mobility,Transfers,Gait, Therapeutic Exercise PT Plan Frequency BID Duration LOS Discharge Goals Bed Transfer Ability Contact Guard/Hand Hold Sit to Stand Chair Transfer Ability Supervision/Stand by Ambulation Assistive Device Rolling Walker Ambulation Distance (feet) 30 Discharge Plan PT Discharge Plan Pt is appropriate to return home with daughter for assistance. Recommend HHPT upon d/c. G -code Required No Eval Complexity Eval
--- NOTE | 2020-05-07 12:01 | PC.NURSE ---
Patient will need a rolling walker rather than a cane due to hip fracture. Patient will need a bedside commode due to hip fracture and distance to the restroom in the home.
--- NOTE | 2020-05-07 13:15 | PC.NURSE ---
Dr. Nguyễn in room at this time. Verbal order received to D/C IVF. order read back and verified.
--- NOTE | 2020-05-07 15:44 | HMH.ORTHPN ---
Subjective Date: 05/07/20 Time: 15:15 Principal diagnosis: Fracture neck of femur, left Interval history: Patient is a 69-year-old female, status post cephalo-medullary nailing LEFT femur, post op day #1. She is sitting out in a chair and appears comfortable; says she is doing well and is eating and drinking well. She says her pain is well controlled with Tylenol. No history of any fevers, chills or rigors. No history of any nausea, vomiting, chest pain or SOB. She is very appreciative of the care she is receiving during this admission. Objective: PN: Obj Ex Vital signs: Temp Pulse Resp BP Pulse Ox 98.3 F 83 16 110/51 L 96 05/07/20 12:00 05/07/20 12:00 05/07/20 12:00 05/07/20 12:00 05/07/20 12:00 Narrative: Laboratory Results - last 24 hr 05/07/20 06:58: WBC 8.0, RBC 2.87 L, Hgb 9.5 L, Hct 29.6 L, MCV 103.3 H, MCH 33.2 H, MCHC 32.1, RDW 13.2, Plt Count 100 L, MPV 10.8 H, Neut % (Auto) 88.0 H, Lymph % (Auto) 8.5 L, [place] % (Auto) 3.2, Eos % (Auto) 0.1, Baso % (Auto) 0.2, Neut # (Auto) 7.1, Lymph # (Auto) 0.7, [place] # (Auto) 0.3, Eos # (Auto) 0.0, Baso # (Auto) 0.0, Total Counted 100, Neutrophils % (Manual) 90 H, Lymphocytes % (Manual) 6 L, Monocytes % (Manual) 4, Platelet Estimate Slight decrease, Macrocytosis 1+ 05/07/20 06:58: Sodium 132 L, Potassium 4.8, Chloride 103, Carbon Dioxide 25, Anion Gap 8.8, BUN 31 H, Creatinine 1.20 H, Estimated Creat Clear 41, Estimated GFR 44 L, Est GFR ( Amer) 54 L, Glucose 185 H, Calcium 7.7 L, Total Bilirubin 0.8, AST 34, ALT 23, Alkaline Phosphatase 60, Total Protein 5.4 L, Albumin 2.9 L, Globulin 2.5, Albumin/Globulin Ratio 1.2 Objective: Vitals,I&O,and Labs: I reviewed her vital signs, lab results, medication, nursing notes, medical progress notes and also discussed with the nursing staff regarding her progress. Exam: General appearance: Alert, awake, no acute distress ENT: Mucous membranes moist Eyes: normal exam ENT: normal exam Neck: normal inspection Cardiovascular: regular rate & rhythm Respiratory: no respiratory distress; speaks in full sentences ABD: soft and nontender. Skin: no gross abnormalities Neuro: alert, awake oriented x 3 Psych: Appropriate mood and affect On examination of the LEFT lower extremity, the limb lengths are equal. The alignment is neutral. The dressings over the hip/thigh are clean, dry and intact. Attempted movements of the hip are painful. Distal neurovascular status is intact. Distal pulses are 1+. Distal sensation is intact to light touch throughout. No motor deficits noted distally. Calf is soft and nontender. No clinical signs of DVT noted. Copies of the fluoroscopic images given to the patient. - Urinary Catheter Management Swanson Cath placed during this visit: no Progress Note: A&P (1) Femoral neck fracture Status: Acute (2) Hypertension Status: Acute Assessment and Plan for All Diagnoses:: I have reviewed the clinical and operative findings and procedure performed progress with the patient. Patient is doing well and advised her to continue mobilization weight bearing as tolerated with physical therapy. Discontinue IV fluids as patient is eating and drinking well. Swanson's catheter DC'd earlier today. Continue PT/OT, pain management with as needed analgesics. Care management looking into discharge planning. Patient wants to go to her daughter's home for few weeks with home health. From an orthopedic standpoint, patient can be discharged tomorrow if medically appropriate. Recommend DVT prophylaxis for 6 weeks postop-agent of choice as per admitting physician. Follow-up in my office in 2 weeks? time with check x-ray. Please feel free to call our office at [phone] for any orthopaedic questions. Continue medical management as per Dr. Taylor.
--- NOTE | 2020-05-07 16:30 | PC.NURSE ---
Routine reassessment completed. No acute changes from previous assessment. Lungs CTA, Heart at RR. BS present x4. Leg hip with foam tape dressing in place x2. both C/D/I. Pt. denies pain. Non pitting edema noted to left hip. Pt. able to move left foot and toes, pedal pulses present and WNL. Pt. denies needs, will continue to monitor.
--- NOTE | 2020-05-07 19:38 | PC.NURSE ---
Report given to Iraida Lyon RN.
--- NOTE | 2020-05-07 21:30 | PC.NURSE ---
20g iv to lfa removed, pt tolerated well
[2020-05-08 05:00] VITALS: BP 118/55; PULSE 86; RESP 18; TEMP 37.2; O2SAT 94
--- NOTE | 2020-05-08 05:54 | PC.NURSE ---
pt has rested well throughout night, pt is alert and oriented, lungs clear to auscultate, heart rate regular, bs x4, pt is passing flatus, pt ambulated from bed to bathroom with standby assist only, pt states hip is sore but refuses tylenol. drsg clean dry and intact to left hip, positive pedal pulses, no needs at this time
[2020-05-08 06:53] LABS: Basophils % 0.4 % (0.1-2.0); Eosinophils % 0.5 % (0.1-12.0); Hematocrit 27.6 % (37.0-47.0); Hemoglobin 9.4 g/dL (12.2-16.2); Lymphocytes # 1.1 K/mm3 (0.7-4.5); Lymphocytes % 16.9 % (10-50); Mean Corpuscular HGB Conc 33.9 g/dL (31.8-35.4); Mean Corpuscular Hemoglobin 33.8 pg (27.0-31.2); Mean Corpuscular Volume 99.5 fl (81-99); Mean Platelet Volume 9.9 fl (7.4-10.4); Monocytes # 0.3 K/mm3 (0.1-1.0); Neutrophils # 5.1 K/mm3 (1.8-7.8); Neutrophils % 78.2 % (37.0-80.0); Platelet Count 102 K/mm3 (142-424); Red Blood Count 2.78 M/mm3 (4.20-5.40); Red Cell Distribution Width 13.5 % (11.5-17.5); White Blood Count 6.6 K/mm3 (4.8-10.8)
[2020-05-08 07:02] LABS: Chloride 99 mmol/L (98-107); Potassium 4.5 mmoL/L (3.5-5.1); Sodium 130 mmol/L (136-145)
[2020-05-08 07:05] LABS: Anion Gap 8.5 mEq/L (5-15); Blood Urea Nitrogen 29 mg/dl (7-17); Carbon Dioxide 27 mmol/L (22.0-30.0); Creatinine Clearance Estimated 35 mL/min (50-200); Estimated Glomerular Filt Rate 37 ml/min (>60); GFR (African American) 45 ML/MIN (>60); Glucose 116 mg/dl (74-100)
--- NOTE | 2020-05-08 07:09 | PC.NURSE ---
pt gave self bed bath and gown was changed.
--- NOTE | 2020-05-08 07:10 | PC.NURSE ---
report given to Lala Torre RN
[2020-05-08 07:39] VITALS: BP 114/53; PULSE 92; RESP 20; TEMP 36.7; O2SAT 89
[2020-05-08 08:00] VITALS: O2SAT 94
[2020-05-08 09:35] LABS: Calcium 8.8 mg/dl (8.4-10.2)
--- NOTE | 2020-05-08 11:56 | HMH.ACPN2 ---
Internal Medicine - PN: Subj *Date: 05/08/20 *Time: 11:56 Interval history: THIS IS FROM DR. NGUYỄN'S NOTE 05/07: I have reviewed the clinical and operative findings and procedure performed progress with the patient. Patient is doing well and advised her to continue mobilization weight bearing as tolerated with physical therapy. Discontinue IV fluids as patient is eating and drinking well. Swanson's catheter DC'd earlier today. Continue PT/OT, pain management with as needed analgesics. Care management looking into discharge planning. Patient wants to go to her daughter's home for few weeks with home health. From an orthopedic standpoint, patient can be discharged tomorrow if medically appropriate. Recommend DVT prophylaxis for 6 weeks postop-agent of choice as per admitting physician. Follow-up in my office in 2 weeks? time with check x-ray. Please feel free to call our office at [phone] for any orthopaedic questions. Continue medical management as per Dr. Taylor. Thus, I will discharge the patient today, with Home Health follow-up and home PT. I will Rx Ferrous Sulfate 325mg daily, and Micro-K 10meq daily. She states that she will likely NOT take the Xarelto, but instead will stay on a baby aspirin. She will follow-up with Dr. Nguyễn as well as with her primary care provider. I told her that she is welcome to see me if that is her preference. Exam Vital signs and Labs for Last 24 Hours: Temp Pulse Resp BP Pulse Ox 98.1 F 92 H 20 114/53 L 94 L 05/08/20 07:39 05/08/20 07:39 05/08/20 07:39 05/08/20 07:39 05/08/20 08:00 Laboratory Results - last 24 hr 05/08/20 06:33: WBC 6.6, RBC 2.78 L, Hgb 9.4 L, Hct 27.6 L, MCV 99.5 H, MCH 33.8 H, MCHC 33.9, RDW 13.5, Plt Count 102 L, MPV 9.9, Neut % (Auto) 78.2, Lymph % (Auto) 16.9, [place] % (Auto) 4.0, Eos % (Auto) 0.5, Baso % (Auto) 0.4, Neut # (Auto) 5.1, Lymph # (Auto) 1.1, [place] # (Auto) 0.3, Eos # (Auto) 0.0, Baso # (Auto) 0.0 05/08/20 06:33: Sodium 130 L, Potassium 4.5, Chloride 99, Carbon Dioxide 27, Anion Gap 8.5, BUN 29 H, Creatinine 1.40 H, Estimated Creat Clear 35, Estimated GFR 37 L, Est GFR ( Amer) 45 L, Glucose 116 H D, Calcium 8.8 D I & O for Last 24 hours: Intake & Output 05/05/20 05/06/20 05/07/20 05/08/20 11:59 11:59 11:59 11:59 Intake Total 398 / 398 1700 / 1700 480 / 480 Output Total 600 / 600 1150 / 1150 2300 / 2300 Balance -202 / -202 550 / 550 -1820 / -1820 Weight 131 lb - Constitutional no acute distress Comments: Appears a bit sallow (hgb=9.2). - *Routine HEENT Exam Head: Present: normocephalic Eye: Present: PERRL ENT: Present: mucous membranes moist - Routine Chest/Breast/Axilla Exam Chest wall: Absent: tenderness - *Routine Respiratory Exam Present: CTA bilaterally - *Routine Cardiovascular Exam Present: RRR - *Routine Abdominal Exam Present: soft. Absent: tenderness - *Routine Extremities Exam Present: edema (Only a trace on the left. Circulation is intact.). Absent: calf tenderness - *Routine Neurological Exam Present: alert, oriented X3 Assessment and Plan (1) Femoral neck fracture Status: Acute Qualifiers: Encounter type: initial encounter Fracture type: closed Laterality: left Qualified Code(s): S72.002A - Fracture of unspecified part of neck of left femur, initial encounter for closed fracture Category: Medical Code(s): S72.009A - Fracture of unspecified part of neck of unspecified femur, initial encounter for closed fracture (2) Hypertension Status: Acute Category: Medical Code(s): I10 - Essential (primary) hypertension - Assessment and plan all Dx Assessment and Plan for all problems:: Discharge to home with home health and physical therapy. See med list. Additions as described above.
--- NOTE | 2020-05-10 22:06 | [facility].DCSUM ---
General - General Admission date:: 05/05/20 Discharge date: 05/08/20 HPI HPI: This 69-year-old white female was walking her dog on a leash when the dog tried to karen a cat, pulling the patient down with injury to her left hip. She had pain and was not able to stand. She was brought to [facility] where x-ray revealed an impacted left femoral fracture. Dr. Nguyễn has been contacted and surgery is planned for tomorrow. The patient is generally quite healthy. She takes lisinopril for hypertension. She has a strong family history of diabetes. Allergies to codeine and oxycodone, penicillin and tetracycline are noted. Hospital Course Hospital Course: The patient was admitted and Dr. Nguyễn was consulted. He wanted to perform cephalomedullary nailing of the left hip. He took the patient to surgery on 05/06/2020 and performed a closed reduction under anesthesia of the left proximal femur fracture with cephalomedullary nailing of the left femur. The patient tolerated the procedure well. By the next day she was sitting up in bed watching TV and seemed to have no discomfort. Dr. Nguyễn recommended weightbearing as tolerated with physical therapy. The patient wanted to go to her daughter's home upon discharge for few weeks with home health. Dr. Nguyễn felt she could be discharged when medically stable and recommended DVT prophylaxis for 6 weeks postop. He wanted to follow-up with her in his office in 2 weeks. By 05/08/2020 the patient was doing well and was stable to be discharged home with home health and physical therapy. Objective Vital signs: Temp Pulse Resp BP Pulse Ox 98.1 F 92 H 20 114/53 L 94 L 05/08/20 07:39 05/08/20 07:39 05/08/20 07:39 05/08/20 07:39 05/08/20 08:00 Narrative: - Constitutional mild distress (Due to left hip pain) - *Routine HEENT Exam Head: Present: normocephalic Eye: Present: PERRL ENT: Present: mucous membranes moist. Absent: dentition normal (Edentulous with dentures) - *Routine Neck Exam Present: supple. Absent: JVD, thyromegaly - Routine Chest/Breast/Axilla Exam Chest wall: Absent: tenderness - *Routine Respiratory Exam Present: CTA bilaterally - *Routine Cardiovascular Exam Present: RRR, S4 - *Routine Abdominal Exam Present: soft. Absent: tenderness, mass - *Routine Extremities Exam Present: normal capillary refill (But pulses are hard to detect). Absent: edema Comments: Outward rotation of the left foot and leg. Pain in the hip. - *Routine Skin Exam Present: intact. Absent: jaundice - *Routine Neurological Exam Present: alert, oriented X3. Absent: altered mental status DS: Diagnosis - Discharge Diagnosis (1) Femoral neck fracture Status: Acute (2) Hypertension Status: Acute Discharge Plan - Patient Discharge Instructions ACTIVITY: Limited activity DIET: advance to your usual diet Patient Instructions: Hip Fracture, DI for Surgical Site Infection, Preventing the Spread of Coronavirus Discharge Instructions - Follow up Plan Follow up with: Richard Nguyễn MD [Staff Physician] - 2 weeks Unknown provider or service follow up:: 05/08/20 12:07 Also arrange follow-up with primary care. Disposition: Home Health Service Home Medications: Home Medications Medication Instructions Recorded Confirmed Type lisinopriL [Lisinopril 30mg Tablet] 30 mg PO DAILY 05/05/20 05/05/20 History Ferrous Sulfate [Ferrous Sulfate 325 mg PO DAILY #90 tab 05/08/20 Rx 325mg Tab] Potassium Chloride [Micro-K 10mEq 10 meq PO DAILY #30 cap 05/08/20 Rx cap] Rivaroxaban [Xarelto 10mg tablet] 10 mg PO DAILY #30 tab 05/08/20 Rx Prescriptions/Medication Reconciliation: New Rivaroxaban [Xarelto 10mg tablet] 10 mg PO DAILY #30 tab Ferrous Sulfate [Ferrous Sulfate 325mg Tab] 325 mg PO DAILY #90 tab Potassium Chloride [Micro-K 10mEq cap] 10 meq PO DAILY #30 cap Continued lisinopriL [
== END 2020-05-08 13:10 | disposition home health service (06) | DRG 482 ==
LOC: ER 18:18 → OB 19:48
PROVIDERS: Orthopaedic Surgery; Admitting Provider Family Medicine; Emergency Provider Emergency Medicine; PCP Internal Medicine; Visit Provider Family Medicine
PROC: 0QS736Z Reposition Left Upper Femur with Intramedullary Internal Fixation Device, Percutaneous Approach (ICD-10-PCS; CPT 27245; principal; 2020-05-06 18:00)
DX: S72.142A Displaced intertrochanteric fracture of left femur, initial encounter for closed fracture (principal); W01.0XXA Fall on same level from slipping, tripping and stumbling without subsequent striking against object, initial encounter; Y93.K1 Activity, walking an animal; Y92.017 Garden or yard in single-family (private) house as the place of occurrence of the external cause; I10 Essential (primary) hypertension; M85.80 Other specified disorders of bone density and structure, unspecified site; Z88.0 Allergy status to penicillin; Z88.1 Allergy status to other antibiotic agents; Z88.2 Allergy status to sulfonamides; Z88.5 Allergy status to narcotic agent
CPT/HCPCS: 27245; 36415; 71045; 72192; 73502; 80048; 80053; 85007; 85025; 85610; 86328; 86850; 97116; 97162; 97165; 97530; 97535; 99284; C1713; C1769; C1776; J2405; J2710

== ENCOUNTER → 2020-05-19 08:49 | Outpatient (CLI) | payer MEDICARE, OTHER, SELFPAY ==
--- NOTE | 2020-05-19 08:56 | XR_ITS ---
PROCEDURE: XR HIP LT 2-3V W/PELVIS CLINICAL INDICATION: LT femur nailing, dos 05/06/2020 COMPARISON: CR XR HIP LT 2-3V W/PELVIS from 05/05/2020 FINDINGS: Two parallel metallic pins are seen in the femoral neck and head stabilizing the combine intertrochanteric and basal cervical hip fracture. The long intramedullary ju extends the length of the femur fixated at the diametaphyseal zone by 2 horizontal threaded screws. IMPRESSION: Satisfactory ORIF left hip fracture Dictated by: Dr. Spencer Peralta MD 05/19/2020 10:29 Dr. Spencer Peralta MD in [place] 05/19/2020 10:29
== END ==
PROVIDERS: PCP Internal Medicine; Visit Provider Orthopaedic Surgery
DX: Z09 Encounter for follow-up examination after completed treatment for conditions other than malignant neoplasm (principal); S72.002A Fracture of unspecified part of neck of left femur, initial encounter for closed fracture
CPT/HCPCS: 73502

== ENCOUNTER → 2020-06-16 10:04 | Outpatient (CLI) | payer MEDICARE, OTHER, SELFPAY ==
--- NOTE | 2020-06-16 10:09 | XR_ITS ---
PROCEDURE: XR HIP LT 2-3V W/PELVIS CLINICAL INDICATION: lt femur nailing, dos 05/06/2020 Follow-up surgery COMPARISON: CR XR HIP LT 2-3V W/PELVIS from 05/05/2020 CR XR HIP LT 2-3V W/PELVIS from 05/19/2020 FINDINGS: S/p nailing and gamma nail screw with intramedullary ju placement in the left hip with good alignment. Mild osteoarthritic changes are present in the hips symphysis pubis and degenerative change in the lumbar spine. IMPRESSION: Good alignment status post ORIF left hip Dictated by: Morro Caceres MD 06/16/2020 10:48 Morro Caceres MD in [place] 06/16/2020 10:48
== END ==
PROVIDERS: Visit Provider Orthopaedic Surgery
DX: Z09 Encounter for follow-up examination after completed treatment for conditions other than malignant neoplasm (principal); S72.002D Fracture of unspecified part of neck of left femur, subsequent encounter for closed fracture with routine healing
CPT/HCPCS: 73502

== ENCOUNTER → 2020-07-28 10:15 | Outpatient (CLI) | payer MEDICARE, OTHER, SELFPAY ==
--- NOTE | 2020-07-28 10:24 | XR_ITS ---
PROCEDURE: XR HIP LT 2-3V W/PELVIS CLINICAL INDICATION: LT femur nailing, dos 05/06/20 Follow-up fracture COMPARISON: CR XR HIP LT 2-3V W/PELVIS from 06/16/2020 FINDINGS: Postsurgical changes with left-sided gamma nail and long intramedullary ju. An additional nail is present just superior to the gamma nail. There is healing fracture of the left intertrochanteric region of the femur with mild osteoarthritic changes of the left hip. There is diffuse vascular calcification. The distal femur cortex is not well delineated on the lateral view with exam overpenetrated and should be repeated at no additional charge to the patient. IMPRESSION: Good alignment status post ORIF left hip. Dictated by: Morro Caceres MD 07/28/2020 16:45 Morro Caceres MD in [place] 07/28/2020 16:45
== END ==
PROVIDERS: PCP Internal Medicine; Visit Provider Orthopaedic Surgery
DX: Z09 Encounter for follow-up examination after completed treatment for conditions other than malignant neoplasm (principal); S72.002D Fracture of unspecified part of neck of left femur, subsequent encounter for closed fracture with routine healing
CPT/HCPCS: 73502

== ENCOUNTER → 2020-11-03 09:46 | Outpatient (CLI) | payer MEDICARE, OTHER, SELFPAY ==
--- NOTE | 2020-11-03 09:54 | XR_ITS ---
PROCEDURE: XR HIP LT 2-3V W/PELVIS CLINICAL INDICATION: sp LT femur nailing SX 05/06/21 COMPARISON: CR XR HIP LT 2-3V W/PELVIS from 07/28/2020 FINDINGS: Left femoral decompression screw and lag screw present unchanged. Healing intertrochanteric fracture noted of the left hip with good alignment. Mild osteoarthritic changes of the hips with degenerative changes of the lower lumbar spine as before. IMPRESSION: No change good alignment status post ORIF left hip Dictated by: Morro Caceres MD 11/03/2020 11:39 Morro Caceres MD in [place] 11/03/2020 11:39
== END ==
PROVIDERS: PCP Internal Medicine; Visit Provider Orthopaedic Surgery
DX: Z09 Encounter for follow-up examination after completed treatment for conditions other than malignant neoplasm (principal)
CPT/HCPCS: 73502

== ENCOUNTER → 2021-06-11 09:27 | Outpatient (CLI) | payer MEDICARE, OTHER, SELFPAY | PROVIDERS: PCP Internal Medicine; Visit Provider Ophthalmology | DX: Z01.812 Encounter for preprocedural laboratory examination (principal) | CPT/HCPCS: C9803; U0003; U0005 ==